=== PATIENT | male | born 1995 | race Caucasian/White ===

== ENCOUNTER 2017-06-19 14:59 | Emergency (ER) | payer OTHER ==
[~2017-06-19] VITALS: Ht 180.3 cm; Wt 69.0 kg
[2017-06-19 15:02] VITALS: Ht 180.3 cm; Wt 69.0 kg
[2017-06-19] MEDS ORDERED: IBUPROFEN 600 MG TAB PO ONE (15:30)
--- NOTE | 2017-06-19 16:01 | RADRPT ---
PROCEDURE: XR Ribs. CLINICAL INDICATION: Status post trauma to right chest. TECHNIQUE: Four views of the chest and right ribs were obtained. COMPARISON: None. FINDINGS: No rib fracture or other focal lesion is identified. The underlying lungs are unremarkable, without pleural effusion or pneumothorax seen. RPTAT:HJJR IMPRESSION: Unremarkable the chest and right rib series. Physician Krishna Date Time Electronically viewed and signed by Fermin Proctor Physician on 06/19/2017 16:01 /
[2017-06-19] MEDS ORDERED: IBUP-1542 PO (16:35)
--- NOTE | 2017-06-19 16:37 | ERD ---
ER Documentation Chief Complaint Date/Time DATE: 06/19/17 TIME: 16:35 Chief Complaint right body pain s/p fall playing soccer today, ambulatory, no deformity HPI This 21-year-old male complains of pain in his right ribs after falling playing soccer today. Denies any head injury, neck injury, weakness, hemoptysis, shortness breath. The pain is worse with deep breathing. denies any other injury other than his right ribs except for some very mild right lateral buttock tenderness. Patient is ambulatory without deficits or weakness. ROS All systems reviewed and are negative except as per history of present illness. Medications Home Meds Active Scripts Ibuprofen* (Motrin*) 600 Mg Tab, 600 MG PO Q6, #20 TAB Prov:MARS SMITH MD 06/19/17 Allergies Allergies: Coded Allergies: No Known Allergy (Unverified , 06/19/17) PMhx/Soc Medical and Surgical Hx: pt denies Medical Hx, pt denies Surgical Hx Hx Alcohol Use: No Hx Substance Use: No Hx Tobacco Use: No Smoking Status: Current every day smoker Physical Exam Vitals Vital Signs Date Time Temp Pulse Resp B/P Pulse Ox O2 Delivery O2 Flow Rate FiO2 06/19/17 15:02 98.3 64 18 111/57 100 Physical Exam Const: []Alert, [id number]. Head: Atraumatic Eyes: Normal Conjunctiva ENT: Normal External Ears, Nose and Mouth. Neck: Full range of motion..~ No meningismus. Resp: Clear to auscultation bilaterally. Mild right rib tenderness without crepitance, deformities, bruising or bleeding. Cardio: Regular rate and rhythm, no murmurs Abd: Soft, non tender, non distended. Normal bowel sounds Skin: No petechiae or rashes Back: No midline or flank tenderness Ext: No cyanosis, or edema Neur: Awake and alert Psych: Normal Mood and Affect Results 24 hrs Current Medications Medications (Trade) Dose Ordered Sig/Emeterio Route PRN Reason Start Time Stop Time Status Last Admin Dose Admin Ibuprofen (Motrin) 600 mg ONCE ONCE PO 06/19/17 15:30 06/19/17 15:31 DC 06/19/17 15:27 Procedures/MDM AP/lateral, 2 view right rib series shows no fractures, dislocations, no pneumothorax, hemothorax, effusion. Impression have normal right rib x-ray Patient is given ibuprofen for pain. Patient presents with right rib pain after falling today without evidence of fracture, dislocation, additional signs of intrathoracic or intra-abdominal trauma. There is no evidence of head injury or neck injury. We treated with ibuprofen and further observation at home and return precautions. The patient was stable with no new complaints during the ER course. Clinically, there is no current evidence to suggest meningitis, sepsis, acute abdomen, pneumonia, acute coronary syndrome, pulmonary embolism, or any other emergent condition appearing to require further evaluation or hospitalization. The patient should certainly return for any new or worsening symptoms per the aftercare instructions. They should otherwise follow-up with her primary care doctor for reevaluation this week. Departure Diagnosis: Primary Impression: Contusion of rib on right side Encounter type: initial encounter Qualified Code: S20.211A - Contusion of rib on right side, initial encounter Condition: Stable Patient Instructions: Rib Contusion Additional Instructions: Examines normal hoy. Cheque otro vez con vidal doctor primario en el proximo melendez or regresa para mas o nueva simptomas. MARS SMITH MD Jun 19, 2017 16:37
== END 2017-06-19 16:55 | disposition home or self-care (01) ==
LOC: FTE 14:59
DX: S20.211A Contusion of right front wall of thorax, initial encounter (principal); F17.210 Nicotine dependence, cigarettes, uncomplicated; W18.39XA Other fall on same level, initial encounter; Y92.9 Unspecified place or not applicable
CPT/HCPCS: 71100; Z7502; Z7610

== ENCOUNTER 2018-02-26 10:02 | Emergency (ER) | END 2018-02-26 11:30 | disposition home or self-care (01) ==

== ENCOUNTER 2018-03-05 10:30 | Emergency (ER) | END 2018-03-05 10:40 | disposition home or self-care (01) ==